=== PATIENT | female | born 1965 | race Caucasian/White ===

== ENCOUNTER → 2016-05-23 | Outpatient (CLI) | payer BC ==
[~2016-05-23] MED LIST: OSLT75C PO; PRED20TA PO
[2016-05-23 15:29] VITALS: BP 132/89
--- NOTE | 2016-05-23 15:30 | Urgent Care T Sheet Gen (E) ---
Intake General Temperature (Fahrenheit): 99.4 Pulse: 118 Blood Pressure Systolic: 132 Blood Pressure Diastolic: 89 Respirations: 18 SPO2: 98 Weight (Pounds): 120 Description of Symptoms Patient presents with illness since Sunday. States it started as a headache and has progressed into sinus congestion, ear fullness and cough. no fever. been taking OTC cold meds without lasting relief. Respiratory Constitutional Symptoms: No Fever, Malaise EENTM: Nose Congestion Throat pain Respiratory: Cough Cardiovascular: No symptoms reported Gastrointestinal/Abdominal: No symptoms reported Neurological: Headache All Other Systems Reviewed Remaining Systems: All other systems reviewed with negative findings Physical Exam Physical Exam General Appearance: WD/WN No apparent distress Eyes, Ears, Nose, Throat Ex: TMs normal (air fluid bubbles) Pharynx normal Other (red, swollen nasal turbinates with clear, thin nasal drainage.) Neck Exam: SuppleNo Lymphadenopathy Respiratory Exam: Lungs clear Normal breath sounds Cardiovascular Exam: Regular rate, rhythm Departure Urgent Care Impression Impression: Primary Impression: URI (upper respiratory infection) Qualified Code: J00 - Acute nasopharyngitis [common cold] Departure Disposition: HOME OR SELF-CARE Condition: Stable Referrals: NISHANT LUNA MD (PCP) Additional Instructions: Patient appears to have a viral URI. Symptomatic treatment. I have prescribed Prednisone x 3 days for inflammation/congestion. If no better, then she may take the Zithromax which I have sent home. Per her request, she asked for liquid. Zithromax 200/5, 14ml po on day 1 then 7ml po daily on days 2-5 Return as needed Patient understands DC instructions. All questions were answered. Scripts Prednisone 20 Mg [id number] Mg PO DAILY #6 TAB Prov:MANI FIGUEROA 05/23/16 End of report . MANI FIGUEROA May 23, 2016 15:29
== END ==
LOC: MHUC 14:56
PROVIDERS: ATTEND Physician Assistant
DX: J00 Acute nasopharyngitis [common cold] (principal)
CPT/HCPCS: 99213

== ENCOUNTER → 2016-06-22 | Outpatient (REF) | payer BC ==
[2016-06-22 13:02] LABS: ALBUMIN 5.1 g/dL (3.4-5.0); ANION GAP 14.4 MEQ/L (3-15); CALCULATED IONIZED CALCIUM 4.1 mg/dL (3.8-4.6); TOTAL PROTEIN 8.3 g/dL (6.4-8.5)
[2016-06-22 17:10] LABS: BASOPHILS % (AUTO) 1 % (0-2); EOSINOPHILS # (AUTO) 0.1 10^3uL; EOSINOPHILS % (AUTO) 1 % (0-4); LYMPHOCYTES # (AUTO) 1.2 X10^3; MEAN CORPUSCULAR HEMOGLOBIN 27.9 PG (26.0-34.0); MEAN CORPUSCULAR HGB CONC 33.1 g/dL (31.0-37.0); MEAN CORPUSCULAR VOLUME 84 FL (80-100); MEAN PLATELET VOLUME 11.6 FL (6.0-9.5); MONOCYTES # (AUTO) 0.4 X10^3; MONOCYTES % (AUTO) 8 % (3-11); NEUTROPHILS % (AUTO) 69 % (51-67); PLATELET COUNT 172 10^3uL (150-450); WHITE BLOOD COUNT 5.82 10^3uL (4.0-11.0)
== END ==
LOC: LAB 12:41
PROVIDERS: ATTEND Family Medicine
DX: Z00.00 Encounter for general adult medical examination without abnormal findings (principal); Z13.6 Encounter for screening for cardiovascular disorders; Z13.29 Encounter for screening for other suspected endocrine disorder; D64.89 Other specified anemias
CPT/HCPCS: 80053; 80061; 84443; 85025

== ENCOUNTER → 2016-06-27 | Outpatient (CLI) | payer BC ==
[2016-06-27 17:06] VITALS: BP 114/78
== END ==
LOC: MHUC 16:46
PROVIDERS: ATTEND Physician Assistant
DX: J09.X2 Influenza due to identified novel influenza A virus with other respiratory manifestations (principal)
CPT/HCPCS: 99213

== ENCOUNTER → 2016-07-20 | Outpatient (CLI) | payer BC | LOC: RAD 08:01 | PROVIDERS: ATTEND Family Medicine | DX: Z12.31 Encounter for screening mammogram for malignant neoplasm of breast (principal) ==

== ENCOUNTER → 2016-07-26 | Outpatient (CLI) | payer BC | LOC: RAD 14:00 | PROVIDERS: ATTEND Family Medicine | DX: R92.2 Inconclusive mammogram (principal); N60.01 Solitary cyst of right breast | CPT/HCPCS: 76642; G0206 ==